=== PATIENT | female | born 1970 | race Caucasian/White ===

== ENCOUNTER 2023-10-01 15:06 | Emergency (ER) | payer SELFPAY ==
[2023-10-01 15:08] VITALS: BP 167/111; PULSE 88; RESP 18; TEMP 35.7; O2SAT 100; BMI 30.3
--- NOTE | 2023-10-01 15:12 | EX.ED.DYSGE1 ---
HPI History of Present Illness Chief Complaint: Ear Problem Detail of Chief Complaint: Right ear pain Informant: patient Onset/Context/Timing Onset: Today Context: Sudden Onset Timing: Continuous Quality: Pain Location: Right ear Current Severity: Mild Maximum Severity: Severe Worsened by: Movement and trying to clean with Q-tip Relieved by: Nothing Associated Symptoms Associated Symptoms: Swelling of the ear Narrative Narrative: Patient is a 53-year-old woman. She states she has recurrent infections. Patient does admit that she does use a Q-tip to clean out her ear. She has not been in water. She is not diabetic. She denies fever or chills. She denies dental pain. She denies clicking with opening closing her mouth. She denies any facial redness or swelling. Prior similar symptoms: Yes Recent Illness/Hospitalization: No PFSH PFSH Medical History (Updated 10/01/23 @ 15:[address] Gustabo Higgins MD) Asthma Ganglion cyst Home Medications [id number]-[id number]-[id number] 3.3 mg-3 mg-10 mg-0.5 mg/mL ear drops,susp (Cortisporin-TC) 5 drp EACH EAR TID #10 mL 10/01/23 [Rx Last Taken Unknown] Allergy/AdvReac Type Severity Reaction Status Date / Time Unable to Assess Allergy Verified 10/01/23 15:07 Surgical History (Updated 10/01/23 @ 15:13 by Rosemarie Gustafson) History of partial hysterectomy ROS ROS ED Constitutional Constitutional ED: Denies chills, fever(s), subjective or sweats Eyes Eyes: Denies blurry vision or change in vision ENT ENT ED: Reports ear pain right; Denies rhinorrhea or sore throat Respiratory/Chest Respiratory/Chest: Denies cough, dyspnea or dyspnea on exertion Allergic/Immunologic Allergic/Immunologic ED: Denies mouth swelling, tongue swelling or urticaria EXAM Physical Exam Const Vital Signs: 10/01/23 15:08 Temperature 96.3 F L Temperature Source Temporal Pulse Rate 88 Respiratory Rate 18 Blood Pressure 167/111 H Blood Pressure Mean 129 Pulse Ox 100 Positive well nourished and well developed General Appearance ED: well developed and NAD; Negative for pallor HEENT Reports moist mucous membranes HEENT Narrative: Head is atraumatic normocephalic. Patient has discomfort plan auricle portion of the tragus on the right. The external auditory canal is slightly swollen. There are scrapes from her traumatizing the canal using a Q-tip. There is no wax. The TM is normal with landmarks noted and positive light reflex. There is no preauricular lymphadenopathy. Eyes PERRL and EOMs intact bilaterally General Eye ED: Negative for pale conjunctiva or scleral icterus Neck supple Resp normal respiratory effort Cardio regular rate and regular rhythm Neuro oriented x3 and CN's II-XII intact bilaterally Sensorium / Orientation: alert Psych Mood & Affect: depressed Skin no rashes or lesions noted, no wounds and skin turgor normal General Skin Exam: Negative for jaundice or pallor MDM MDM MDM Narrative Medical decision making narrative: Differential diagnosis is otitis externa, otitis media, traumatic injury. Patient was told she has infection this is most likely because she used a Q-tip and caused trauma to the external auditory canal on the right. Patient was scribed Cortisporin otic suspension and discharged to home with appropriate home-going instructions. Discharge Plan Triage Chief Complaint: Ear Problem ED Provider: Gustabo Higgins Dx/Rx/DC Orders Clinical Impression: External otitis of right ear Instructions: ED External Ear Infection (Adult) Prescriptions: New Cortisporin-TC 3.3-3-10-0.5 mg/mL drops,suspension 5 drp EACH EAR TID Qty: 10 0RF Rx Instructions: For 7 days Primary Care Provider: Myrna Garcia,Out of Referrals: Myrna Garcia,Out of [Primary Care Provider] - 3-5 Days if not improving Disposition Disposition: Home, Self Care
== END 2023-10-01 15:32 | disposition home or self-care (01) ==
LOC: ED 15:23
PROVIDERS: Emergency Provider Emergency Medicine; Visit Provider Emergency Medicine
DX: H60.91 Unspecified otitis externa, right ear (principal); Z90.710 Acquired absence of both cervix and uterus
CPT/HCPCS: 99282